=== PATIENT | female | born 1940 | race Caucasian/White ===

== ENCOUNTER → 2020-07-08 | Outpatient (CLI) | payer MEDICARE, BC ==
--- NOTE | 2020-07-08 11:15 | RAD ---
Ultrasound of the right upper quadrant of the abdomen 07/08/2020 CLINICAL HISTORY: Elevated liver function tests. TECHNIQUE: A real-time ultrasound examination of the right upper quadrant of the abdomen was pee short. Multiple images were obtained. FINDINGS: The gallbladder is not visualized consistent with a cholecystectomy. The common bile duct m easures 9 mm which is within the upper limits of normal. The liver is normal in size measuring 9.8 cm in length. No focal abnormality of the liver is seen. The right kidney and visualized portions of th e pancreas are within normal limits. No free fluid is seen. IMPRESSION: Post cholecystectomy. Otherwise negative study. Electronically signed by: Joshua Cano MD (07/08/2020 11:13 AM) [id number]
--- NOTE | 2020-07-10 16:51 | RAD ---
EXAMINATION: MG BILAT SCREEN+COLIN CLINICAL HISTORY: Routine screening TECHNIQUE: Digital craniocaudal and mediolateral oblique views of the bilateral breasts obtained with 3-D tomosynthesis. COMPARISON: 07/21/2019, 06/30/2018, 06/24/2017 BREAST COMPOSITION: There are scattered areas of fibroglandular density. FINDINGS: No evidence of suspicious mass, calcifications, or areas of architectural distortion. IMPRESSION: No mammographic evidence of malignancy. BI-RADS ASSESSMENT: Category 1: Negative RECOMMENDATION: Return for routine bilateral screening mammogram in one year. PQRS compliance statement - Patient information was entered into a reminder system with a target due date for the next mammogram. "Our facility is accredited by the [employer] Mammography [employer]." Electronically signed by: Chalino Mccarthy DO (07/10/2020 4:49 PM) [id number]
== END ==
LOC: MAMMO 09:10
PROVIDERS: ATTEND Family Medicine
DX: Z12.31 Encounter for screening mammogram for malignant neoplasm of breast (principal); R74.8 Abnormal levels of other serum enzymes; Z90.49 Acquired absence of other specified parts of digestive tract
CPT/HCPCS: 76705; 77063; 77067